=== PATIENT | female | born 1985 | race Caucasian/White ===

== ENCOUNTER 2019-08-11 10:45 | Inpatient (IN) | payer OTHER ==
[~2019-08-11] VITALS: Ht 157.4 cm; Wt 46.9 kg
[2019-08-11 10:57] VITALS: BP 103/67
[2019-08-11 11:51] LABS: BASO # 0.1 10*3/uL (0.0-0.1); BASO % 0.5 % (0.0-1.0); EOS # 0.1 10*3/uL (0.0-0.4); EOS % 0.6 % (1.0-4.0); HEMATOCRIT 41.2 % (37.0-47.0); LYMPH % 6.4 % (27.0-41.0); MEAN CELL VOLUME 88.6 fl (81.0-99.0); MEAN CORPUSCULAR HGB 28.4 pg (27.0-31.0); MEAN PLATELET VOLUME 8.7 fl (9.6-12.3); MONO # 0.7 10*3/uL (0.1-1.0); MONO % 4.2 % (3.0-9.0); NEUT # 13.6 10*3/uL (2.3-7.9); NEUT % 87.8 % (47.0-73.0); PLATELET COUNT AUTOMATED 293 10*3/uL (130-400); RED BLOOD COUNT 4.65 10*6/uL (4.10-5.10); RED CELL DISTRI WIDTH 13.7 % (0-14.5); WHITE BLOOD COUNT 15.5 10*3/uL (4.8-10.8)
[2019-08-11 12:04] LABS: ACT PARTIAL THROMBO TIME 24.3 SECONDS (20.0-32.1); INTERNATIONAL NORM RATIO 1.2 (2.0-3.5)
[2019-08-11 12:06] VITALS: BP 109/55
[2019-08-11 12:07] LABS: CHLORIDE 104 mmol/L (98-107); POTASSIUM 3.3 mmol/L (3.5-5.1); SODIUM 139 mmol/L (136-145)
[2019-08-11 12:13] LABS: ALBUMIN 3.5 gm/dl (3.1-4.5); ALKALINE PHOSPHATASE 63 U/L (45-117); BUN 13 mg/dl (7-24); CREATININE 0.73 mg/dL (0.55-1.02); SGOT/AST 31 IU/L (3-35); SGPT/ALT 45 U/L (12-78); TOTAL PROTEIN 7.4 gm/dL (6.4-8.2)
[2019-08-11 12:18] LABS: BETA-HCG, QUANT < 1.0 mIU/mL (1-3); ETHYL ALCOHOL < 3.0 mg/dl (<3)
[2019-08-11 12:57] VITALS: BP 104/57
[2019-08-11 14:21] LABS: BILIRUBIN NEGATIVE (NEGATIVE); BLOOD 3+ (NEGATIVE); CLARITY CLOUDY (CLEAR); COLOR YELLOW (YELLOW); GLUCOSE NEGATIVE (NEGATIVE); KETONE NEGATIVE (NEGATIVE)
[2019-08-11 14:22] LABS: BACTERIA 4+; CALCIUM OXALATE CRYSTALS 1+; EPITHELIAL CELLS 51-100; LEUKO ESTERASE NEGATIVE (NEGATIVE); MUCOUS 2+; NITRITE POSITIVE (NEGATIVE); RBC 31-40 rbc/hpf (0-2); UROBILINOGEN 0.2 E.U./dl (0.2-1.0)
[2019-08-11 14:41] LABS: URINE AMPHETAMINES < 1000 (1000ng/ml); URINE BARBITURATES > 200 (200ng/ml); URINE BENZODIAZEPINES < 200 (200ng/ml); URINE CANNABINOIDS (THC) > 50 (50ng/ml); URINE COCAINE > 300 (300ng/ml); URINE METHADONE < 300 (300ng/ml); URINE OPIATES > 300 (300ng/ml); URINE PHENCYCLIDINE < 25 (25ng/ml)
[2019-08-11 16:00] VITALS: BP 95/49
[2019-08-11] MEDS ORDERED: GABAPENTIN800 MG PO (16:08)
[2019-08-11] MEDS ORDERED: SUBOXONE 8 MG-1 EACH SL (16:10)
[2019-08-11 20:00] VITALS: BP 108/61
[2019-08-12] VITALS: BP 92/58
[2019-08-12 01:00] VITALS: BP 110/54
[2019-08-12 08:00] VITALS: BP 90/51
[2019-08-12 08:21] LABS: BASO # 0.1 10*3/uL (0.0-0.1); EOS # 0.3 10*3/uL (0.0-0.4); EOS % 3.1 % (1.0-4.0); HEMATOCRIT 42.4 % (37.0-47.0); LYMPH # 2.9 10*3/uL (1.3-4.4); LYMPH % 31.6 % (27.0-41.0); MEAN CELL VOLUME 88.3 fl (81.0-99.0); MEAN CORPUSCULAR HGB 28.3 pg (27.0-31.0); MEAN CORPUSCULAR HGB CONC 32.1 g/dl (33.0-37.0); MEAN PLATELET VOLUME 9.3 fl (9.6-12.3); MONO # 0.8 10*3/uL (0.1-1.0); MONO % 8.1 % (3.0-9.0); NEUT # 5.2 10*3/uL (2.3-7.9); PLATELET COUNT AUTOMATED 348 10*3/uL (130-400); RED CELL DISTRI WIDTH 13.7 % (0-14.5); WHITE BLOOD COUNT 9.2 10*3/uL (4.8-10.8)
[2019-08-12 08:37] LABS: ALBUMIN 3.4 gm/dl (3.1-4.5); ALKALINE PHOSPHATASE 61 U/L (45-117); BUN 16 mg/dl (7-24); CHLORIDE 108 mmol/L (98-107); CREATININE 0.61 mg/dL (0.55-1.02); POTASSIUM 4.1 mmol/L (3.5-5.1); SGOT/AST 33 IU/L (3-35); SGPT/ALT 46 U/L (12-78); SODIUM 138 mmol/L (136-145); TOTAL PROTEIN 7.6 gm/dL (6.4-8.2)
[2019-08-12 12:00] VITALS: BP 101/60
[2019-08-12 16:00] VITALS: BP 98/62
[2019-08-12 20:00] VITALS: BP 116/62
[2019-08-13] VITALS: BP 91/48
[2019-08-13 00:45] VITALS: BP 102/58
[2019-08-13 08:00] VITALS: BP 106/71
[2019-08-13] MEDS ORDERED: VITAMIN D3125 MC1 PO (08:43)
[2019-08-13] MEDS ORDERED: NATURE'S BLEND F1 MG PO (08:43)
[2019-08-13] MEDS ORDERED: ATARAX,VISTARIL50 MG PO (08:43)
[2019-08-13] MEDS ORDERED: VITAMIN B-1100 M1 PO (08:43)
[2019-08-13] MEDS ORDERED: CHLORDIAZEPOXID25 M1 PO (08:43)
[2019-08-13] MEDS ORDERED: AUGMENTIN 875-875 MG PO (08:43)
== END 2019-08-13 10:30 | disposition home or self-care (01) | DRG 720 ==
LOC: ED 10:45 → EDHOLD 11:38 → 4E 11:38
PROVIDERS: Emergency Medicine; Registered Nurse; ADMIT Family Medicine
DX: A41.51 Sepsis due to Escherichia coli [E. coli] (principal); F11.23 Opioid dependence with withdrawal; J96.01 Acute respiratory failure with hypoxia; E44.0 Moderate protein-calorie malnutrition; F13.20 Sedative, hypnotic or anxiolytic dependence, uncomplicated; N39.0 Urinary tract infection, site not specified; E87.6 Hypokalemia; B19.20 Unspecified viral hepatitis C without hepatic coma; Z87.891 Personal history of nicotine dependence; Z88.1 Allergy status to other antibiotic agents; Z68.1 Body mass index [BMI] 19.9 or less, adult; R65.20 Severe sepsis without septic shock